=== PATIENT | male | born 1955 | race African-American/Black ===

== ENCOUNTER 2017-04-29 13:27 | Emergency (ER) | payer OTHER ==
[~2017-04-29] VITALS: Ht 182.9 cm; Wt 79.4 kg
[2017-04-29 13:27] VITALS: BP 160/90
--- NOTE | 2017-04-29 15:00 | Diagnostic Imaging Report ---
Indication: Neck pain status post falling and hitting neck Technique: Spiral acquisitions obtained through the cervical spine. No IV contrast utilized. Multiplanar reconstructions were generated. Total dose length product through 66 mGycm. CTDIvol(s) 16 mGy. Dose reduction achieved using automated exposure control Comparison: None Findings: Bony alignment is normal. No prevertebral soft tissue. No acute fractures. No dislocations. Vertebral body heights are preserved. There are considerable degenerative proliferative changes at multiple levels. At C2-3, there is central broad-based posterior disc protrusion. This results in mild narrowing of the spinal canal, to 9 mm. The neural foramina are preserved At C3-4, there is moderate degenerative disc narrowing. Short pedicles, as well as circumferential annular bulge, results in moderate narrowing of the spinal canal, to a minimum of 7 mm AP dimension. This results in impingement on the spinal cord. There is moderate to severe neural foraminal stenosis bilaterally. At C4-5, there is mild to moderate degenerative disc narrowing. There is broad-based posterior disc protrusion. This, in combination with short pedicles, results in other during spinal canal, 7 mm minimum AP diameter, with impingement upon the cord. There is moderate to severe right, moderate left neural foraminal stenosis. At C5-6, there is mild degenerative narrowing. There is broad-based posterior central disc protrusion. This, in combination with short pedicles, results in moderate neural foraminal stenosis, minimum AP diameter 8 mm. There is some impingement on the cord. There is minimal bilateral neural foraminal stenosis due to facet hypertrophy. At C6-7, there is moderate to severe degenerative disc narrowing. Short pedicles, posterior osteophytes, and broad-based central disc protrusion result in moderate narrowing of the spinal canal, minimum AP diameter 7 mm. There is moderate to severe bilateral neural foraminal stenosis. At C7-T1, no significant disc bulge or protrusion or spinal stenosis. Facet and uncinate hypertrophy results in mild to moderate bilateral neural foraminal stenosis The included lung apices are clear. The included extraspinal soft tissues are unremarkable. Impression: No acute bony trauma Multilevel degenerative change, with multilevel spinal and neural foraminal stenosis, as detailed on a level by level basis above The CT scanner at [facility] is accredited by the [employer] and the scans are performed using protocols designed to limit radiation exposure to as low as reasonably achievable to attain images of sufficient resolution adequate for diagnostic evaluation.
[2017-04-29] MEDS ORDERED: IBUPROFEN600 MG ORAL (15:20)
[2017-04-29] MEDS ORDERED: ROBAXIN-750750 MG PO (15:20)
[2017-04-29 15:31] VITALS: BP 160/90
--- NOTE | 2017-04-29 20:59 | Emergency Room Report ---
History of Present Illness General Chief Complaint: Neck Pain Source: Patient Present Illness HPI The patient is a 61-year-old male presenting for pain after a piece of ceiling fell onto his head. He denies loss of consciousness. He is now describing a 10 out of 10 dull ache to his neck. Pain does not radiate. Worse with head movement. He denies any other injury or symptoms including nausea, vomiting, dizziness, blurred vision Allergies: Coded Allergies: PENICILLINS (Verified Allergy, Unknown, 04/29/17) Patient History Past Medical History: see triage record Pertinent Family History: none Reviewed Nursing Documentation: PMH: Agreed, PSxH: Agreed Nursing Documentation-PMH Hx Hypertension: Yes Hx Neurological Problems: No - DESTIN SURGERY, HX OF BROKEN NECK, Review of Systems All Other Systems: negative except mentioned in HPI Physical Exam Vital Signs Date Time Temp Pulse Resp B/P Pulse Ox O2 Delivery O2 Flow Rate FiO2 04/29/17 13:25 98.8 80 16 160/90 100 Room Air Sp02 EP Interpretation: reviewed, normal General Appearance: no apparent distress, alert, GCS 15, non-toxic Head: normocephalic, atraumatic Eyes: bilateral eye PERRL, bilateral eye normal inspection ENT: hearing grossly normal, normal pharynx, no angioedema, normal voice Neck: normal inspection, full range of motion, supple/symm/no masses, tender lateral - bilat paraspinal tenderness Respiratory: chest non-tender, lungs clear, normal breath sounds, speaking full sentences Musculoskeletal: back normal, gait/station normal, normal range of motion, non- tender Neurologic: alert, oriented x3, responsive, motor strength/tone normal, sensory intact, speech normal Psychiatric: judgement/insight normal, memory normal, mood/affect normal, no suicidal/homicidal ideation Medical Decision Making PA Attestation Dr. Fisher is my supervising physician. Patient management was discussed with my supervising physician Diagnostic Impression: Primary Impression: Cervical strain, acute Qualified Codes: S16.1XXA - Strain of muscle, fascia and tendon at neck level , initial encounter ER Course The patient is a [id number] male presenting for neck pain Differential diagnoses considered but not limited to: Cervical strain, disc herniation, fracture, concussion Physical exam: No apparent distress Head is normocephalic atraumatic. No ecchymosis or hematoma. There is bilateral cervical paraspinal tenderness. No step-offs. Neck is soft and supple. The patient is given pain medication CT scan of C-spine shows no acute findings He'll be discharged home with a prescription for pain medication. ER precautions are given CT/MRI/US Diagnostic Results CT/MRI/US Diagnostic Results : Imaging Test Ordered: CT C spine Impression no acute findings Last Vital Signs Date Time Temp Pulse Resp B/P Pulse Ox O2 Delivery O2 Flow Rate FiO2 04/29/17 15:31 98.8 80 16 160/90 100 Room Air Status: improved Disposition: HOME, SELF-CARE Condition: Improved Scripts Methocarbamol* (ROBAXIN-750*) 750 Mg Tablet 750 MG PO TID, #21 TAB 0 Refills Prov: ORLY CROOK 04/29/17 Ibuprofen* (MOTRIN*) 600 Mg Tablet 600 MG ORAL Q8H Y for For Pain, #30 TAB 0 Refills Prov: ORLY CROOKASarita 04/29/17 Patient Instructions: Cervical Sprain Additional Instructions: I discussed my findings with the patient. All questions and concerns have been answered. Treatment and medication compliance have been addressed. I advised the patient that they need to follow up with PMD in 3-5 days. Return to ED if pain remains or worsens, numbness or tingling occurs, new rash is noticed, fever is noticed, or if needed for any reason. Patient verbalized understanding of discharge instructions. ORLY CROOK Apr 29, 2017 20:59
== END 2017-04-29 15:31 | disposition home or self-care (01) ==
LOC: EDBD 13:27 → EMR 13:45
DX: S16.1XXA Strain of muscle, fascia and tendon at neck level, initial encounter (principal); W22.8XXA Striking against or struck by other objects, initial encounter; Y93.9 Activity, unspecified; Y92.9 Unspecified place or not applicable; I10 Essential (primary) hypertension; Z88.0 Allergy status to penicillin
CPT/HCPCS: 72125; 99284